=== PATIENT | female | born 1980 | race Caucasian/White ===

== ENCOUNTER 2020-12-22 08:22 | Inpatient (IN) | payer BC, OTHER ==
[~2020-12-22] VITALS: Ht 175.3 cm; Wt 84.8 kg
--- NOTE | 2020-12-28 08:45 | NUR ---
12/28/20 0845 Sheets,Tia 0817 PT ARRIVED TO [facility] ROOM 104, PT DENIES PAIN AND NAUSEA. SPINAL LEVEL T-7, PT DENIES SOB. PT REPORTS NUMBNESS IN FEET AND SPINAL EDUCATION GIVEN. 0837 BABY TO CHEST WITH PT.
--- NOTE | 2020-12-28 14:19 | OR ---
[facility] [address] [place], [place] [address] Signed DATE OF OPERATION: 12/28/2020 SURGEON: Ryne Villeda MD PREOPERATIVE DIAGNOSIS: Term , previous section. POSTOPERATIVE DIAGNOSIS: Term , previous section. PROCEDURE: Repeat low transverse segment section, delivery of a live male infant. DESK CLERK: Dr. Deutsch. ANESTHESIA: Spinal. ESTIMATED BLOOD LOSS: 800 mL. COMPLICATIONS: None. DRAINS: Lucia to bladder. FINDINGS: Live male , Apgars 5 and 8. Weight 6 pounds 2 ounces. Nuchal cord around the neck and around the body. Normal uterus with large sinus in the lower uterine segment. Normal tubes and ovaries bilateral. DESCRIPTION OF PROCEDURE: The patient was brought into the operating room, placed in supine position. After adequate spinal anesthesia was obtained, she was prepped and draped in usual sterile fashion. Lucia catheter was placed in the bladder. A Pfannenstiel skin incision was made through previous surgical scar. Subcutaneous tissue was dissected with scalpel and Bovie. The fascia was nicked with scalpel and extended in transverse fashion using curved scissors. The underlying abdominal musculature was bluntly and sharply Electronically Signed By: RYNE VILLEDA MD 12/28/20 1419 PATIENT NAME: ROBERT LYNN OPERATIVE REPORT DATE OF : 80 REPORT #: [id number] PHYSICIAN: RYNE VILLEDA MD PCP: NO PRIMARY CARE PHYSICIAN REPORT IS CONFIDENTIAL AND NOT TO BE RELEASED WITHOUT AUTHORIZATION [facility] [address] [place], [place] [address] Signed from the fascia above and below the incision. The peritoneum was grasped, hemostats elevated, nicked with scissors, extended in vertical fashion using curved scissors. The Pernell self-retaining retractor was inserted into the incision and tightened in place. The lower uterine segment was identified. The lower uterine segment was examined and the lower uterine segment nicked with the scalpel. There was some bleeding after the superficial layer that was fairly brisk so, finger dissection was used to open the incision the rest of the way and finger dissection was used to extend the incision in transverse fashion. Sinus in the lower segment not visible from the surface. Bulging bag of clear fluid then came out of the incision, which was very quickly opened with pickups with teeth and the head delivered from the incision. The cord was noted to be around the neck once and extended around the body, this was removed as the baby was delivered. The baby was somewhat floppy at the time, so the cord was quickly doubly clamped and cut and passed off the table to the awaiting nurse for resuscitation. The placenta was manually removed and uterine cavity explored a lap pad to remove any retained membranes. An angle stitch of 0 Monocryl was placed on one side of the incision. On the right side, the endometrium was somewhat torn and bleeding just below the angle, so a running locking stitch of 0 chromic was placed inside the uterine cavity to close this bleeding area on the right side below the angle. When good hemostasis was obtained, the uterine incision was closed using a running locking stitch of 0 Monocryl. The 2nd running stitch of 0 Monocryl was used to imbricate the 1st layer. At this point, good hemostasis was noted. The entire pelvis was irrigated, suctioned, and examined, and any superficial bleeding spots cauterized with the Bovie. The Pernell retractor was removed and sheet of ACell placed over lower uterine segment to help with healing. The anterior wall peritoneum was then closed using running stitch of 2-0 Vicryl suture. The abdominal musculature was reapproximated using interrupted stitches of 0 Vicryl suture. The abdominal wall incision was irrigated, suctioning any bleeding spots cauterized with the Bovie. Powdered ACell sprinkled over the abdominal musculature to help with healing. The fascia was then closed using two running stitch of 0 Vicryl suture meeting in the midline. The subcutaneous tissue was irrigated, suctioned, and examined, and any bleeding spots cauterized with the Bovie. Subcutaneous tissue was closed using interrupted stitches of 3-0 Vicryl suture. The skin reapproximated using skin clips. The patient tolerated the procedure well, went to recovery room in good condition. The sponge, needle, and instrument counts were correct at the end of procedure. Ryne Villeda MD Electronically Signed By: RYNE VILLEDA MD 12/28/20 1419 PATIENT NAME: ROBERT LYNN OPERATIVE REPORT DATE OF : 80 REPORT #: [id number] PHYSICIAN: RYNE VILLEDA MD PCP: NO PRIMARY CARE PHYSICIAN REPORT IS CONFIDENTIAL AND NOT TO BE RELEASED WITHOUT AUTHORIZATION [address] [address] Signed [facility] /[id number] Copies: ~ Electronically Signed By: RYNE VILLEDA MD 12/28/20 1419 PATIENT NAME: ROBERT LYNN OPERATIVE REPORT DATE OF : 80 REPORT #: [id number] PHYSICIAN: RYNE VILLEDA MD PCP: NO PRIMARY CARE PHYSICIAN REPORT IS CONFIDENTIAL AND NOT TO BE RELEASED WITHOUT AUTHORIZATION
--- NOTE | 2020-12-29 11:57 | PR ---
[facility] [address] [place], [place] [address] Signed PP Progress Notes Datetime Report Generated by CPN: 12/29/2020 11:57 SUBJECTIVE: [id number] Pain: Within Normal Limits Nausea/Vomiting: Denies Flatus: Yes Bowel Movement: Yes Vital Signs: [id number] Vital Signs: Reviewed; Within Normal Limits Cardiovascular: Normal Respiratory: Normal Abdomen/Uterus: Normal Lochia: Normal Vulva/Perineum: Not Done Breasts: Not Done CVA Tenderness: Normal Extremities: Normal Incision: Normal Progress: Normal Exam Comments: Fundus firm U-2 nontender IMPRESSION/PLAN/PROCEDURES: [id number] Impression: Normal Progression Plan: Continue Present Management Progress Notes: Pt seen and examined. Doing well. Ambulating, voiding, and tolerating full diet. Pain and lochia minimal. well. No fevers/chills or other concerns. Anticipate d/c home tomorrow. Hgb 10.1 Signing Physician: Chance Deutsch DO Copies: ~ *Electronically Signed* 12/29/20 1157 CHANCE DEUTSCH DO PATIENT NAME: BIGING,ROBERT A PROGRESS NOTE DATE OF : 80 PHYSICIAN: CHANCE DEUTSCH DO RPT #: [id number] REPORT IS CONFIDENTIAL AND NOT TO BE RELEASED WITHOUT AUTHORIZATION
--- NOTE | 2020-12-30 12:26 | PR ---
[facility] [address] [place], [place] [address] Signed PP Progress Notes Datetime Report Generated by CPN: 12/30/2020 12:26 SUBJECTIVE: [id number] Pain: Within Normal Limits Nausea/Vomiting: Denies Flatus: Yes Bowel Movement: Yes Vital Signs: [id number] Vital Signs: Reviewed; Within Normal Limits Cardiovascular: Normal Respiratory: Normal Abdomen/Uterus: Normal Lochia: Normal Vulva/Perineum: Not Done Breasts: Not Done CVA Tenderness: Normal Extremities: Normal Incision: Normal Progress: Normal Exam Comments: NAD RRR CTAB Abd: SNTND, FFBU Incision: c/d/i Ext: trace edema, neg Miranda's BL IMPRESSION/PLAN/PROCEDURES: [id number] Impression: Normal Progression Plan: Continue Present Management; Remove [place]; Discharge Procedures: None Progress Notes: POD#2 s/p RLTCS Hgb 10.1 postop day #1 Progressing well , pain well controlled on orals Ambulating, voiding, tolerating regular diet Requesting DC to home today Signing Physician: Delonte Barkley DO Copies: *Electronically Signed* 12/30/20 1226 DELONTE BARKLEY DO PATIENT NAME: ROBERT LYNN PROGRESS NOTE DATE OF : 80 PHYSICIAN: DELONTE BARKLEY DO RPT #: [id number] REPORT IS CONFIDENTIAL AND NOT TO BE RELEASED WITHOUT AUTHORIZATION [address] [address] Signed ~ *Electronically Signed* 12/30/20 1226 DELONTE BARKLEY DO PATIENT NAME: ROBERT LYNN PROGRESS NOTE DATE OF : 80 PHYSICIAN: DELONTE BARKLEY DO RPT #: [id number] REPORT IS CONFIDENTIAL AND NOT TO BE RELEASED WITHOUT AUTHORIZATION
== END 2020-12-30 14:30 | disposition home or self-care (01) | DRG 787 ==
LOC: FBC 12-28 05:55
PROVIDERS: ADMIT General Practice; ATTEND General Practice
PROC: 30233N1 Transfusion of Nonautologous Red Blood Cells into Peripheral Vein, Percutaneous Approach (ICD-10-PCS; 2020-12-28)
PROC: 10D00Z1 Extraction of Products of Conception, Low, Open Approach (ICD-10-PCS; principal; 2020-12-28 07:30)
DX: O34.211 Maternal care for low transverse scar from previous cesarean delivery (principal); D62 Acute posthemorrhagic anemia; Z3A.39 39 weeks gestation of pregnancy; Z37.0 Single live birth; O69.81X0 Labor and delivery complicated by cord around neck, without compression, not applicable or unspecified; O99.284 Endocrine, nutritional and metabolic diseases complicating childbirth; E03.9 Hypothyroidism, unspecified; O99.02 Anemia complicating childbirth
CPT/HCPCS: 01961; 83030; 85027; 86850; 86870; 86900; 86901; A9270; J0690; J2001; J2274; J2405; J2590; J2765; J2790; J3010; J7121